=== PATIENT | male | born 1990 | race Two or more races ===

== ENCOUNTER 2024-12-12 16:58 | Emergency (ER) | payer MEDICAID, OTHER ==
[~2024-12-12] VITALS: Ht 185.4 cm; Wt 99.8 kg
[2024-12-12 17:11] VITALS: BP 126/88; TEMP 98.1; O2SAT 98
[2024-12-12] MEDS ORDERED: LIDOCAINE 1% INJ 50 ML MDV IJ ONE (18:03)
[2024-12-12] MEDS: LIDOCAINE HCL/PF 1% 30 ML VIAL TP ONE (18:04)
[2024-12-12] MEDS ORDERED: IBUP-1490 PO (18:22)
== END 2024-12-12 18:33 | disposition home or self-care (01) ==
LOC: ER 17:06
DX: S60.111A Contusion of right thumb with damage to nail, initial encounter (principal); F17.200 Nicotine dependence, unspecified, uncomplicated; W23.0XXA Caught, crushed, jammed, or pinched between moving objects, initial encounter; Y93.89 Activity, other specified; Y92.810 Car as the place of occurrence of the external cause; Y99.8 Other external cause status
CPT/HCPCS: 99284; 11740; 73130; J3490 ×2